=== PATIENT | female | born 1965 | race Two or more races ===

== ENCOUNTER 2021-09-11 12:57 | Emergency (ER) | payer MEDICAID ==
[~2021-09-11] VITALS: Ht 154.9 cm; Wt 65.8 kg
--- NOTE | 2021-09-11 14:30 | NUR ---
DR BRADEN AT BEDSIDE
--- NOTE | 2021-09-11 14:40 | NUR ---
BRAKE TESTER AT BEDSIDE
[2021-09-11] MEDS ORDERED: ACETAMINOPHEN 325 MG TABLET ONE (14:41)
[2021-09-11] MEDS ORDERED: ACETAMINOPHEN 325 MG TABLET PO ONE (15:00)
[2021-09-11] MEDS ORDERED: IBUP-1955 PO (15:15)
[2021-09-11] MEDS ORDERED: CYCL5TAB PO (15:15)
--- NOTE | 2021-09-11 16:32 | NUR ---
Patient discharged to home in stable condition. Written and verbal after care instructions given. Patient verbalizes understanding of instruction.
[2021-09-11 16:34] VITALS: BP 138/71
== END 2021-09-11 16:34 | disposition home or self-care (01) ==
LOC: ER 13:07
DX: S16.1XXA Strain of muscle, fascia and tendon at neck level, initial encounter (principal); R07.89 Other chest pain; I10 Essential (primary) hypertension; Z79.899 Other long term (current) drug therapy; V89.2XXA Person injured in unspecified motor-vehicle accident, traffic, initial encounter; Y93.89 Activity, other specified; Y92.89 Other specified places as the place of occurrence of the external cause; Y99.8 Other external cause status
CPT/HCPCS: 71045-TC